=== PATIENT | female | born 1955 | race Two or more races ===

== ENCOUNTER 2017-09-03 06:05 | Day surgery (SDC) | payer OTHER ==
[2017-09-03] VITALS (8 sets, daily range): BP systolic 114–140; BP diastolic 79–96; PULSE 62–103; RESP 16–18; Ht 139.7 cm; Wt 43.7 kg
[~2017-09-03] VITALS: Ht 139.7 cm; Wt 43.7 kg
[~2017-09-03 06:05] MED LIST: ANTIBIOTIC; CALC-67 PO; IBUP-1542 PO; OMEP20CA16 PO
[2017-09-03] MEDS ORDERED: MIDAZOLAM 1 MG/ML 2 ML INJ ONE (07:11)
[2017-09-03] MEDS ORDERED: LIDOCAINE 2% (SDV) 5 ML INJ ONE (07:11)
[2017-09-03] MEDS ORDERED: PROPOFOL 20 ML ONE (07:11)
[2017-09-03] MEDS ORDERED: CEFAZOLIN 1 GM INJ ONE (07:12)
[2017-09-03] MEDS ORDERED: DEXAMETHASONE 4 MG/ML 1 ML INJ ONE ×2 (07:12→07:45)
[2017-09-03] MEDS ORDERED: FENTAnyl 50 MCG/ML VIAL ONE (07:12)
[2017-09-03] MEDS ORDERED: ONDANSETRON 4 MG INJ ONE (07:12)
[2017-09-03] MEDS ORDERED: FAMOTIDINE 20 MG INJ ONE (07:12)
[2017-09-03] MEDS ORDERED: ALEN40TA2 PO (07:18)
[2017-09-03] MEDS ORDERED: METOCLOPRAMIDE 10 MG INJ IV PRN (07:30)
[2017-09-03] MEDS ORDERED: MEPERIDINE 25 MG INJ IV PRN (07:30)
[2017-09-03] MEDS ORDERED: ONDANSETRON 4 MG INJ IV PRN (07:30)
[2017-09-03] MEDS ORDERED: OXYCODONE/ACETAMINOPHEN (5/325) TAB PO PRN ×2 (07:30)
[2017-09-03] MEDS ORDERED: DIPHENHYDRAMINE 50 MG INJ IV PRN (07:30)
[2017-09-03] MEDS ORDERED: FENTAnyl 50 MCG/ML VIAL IV PRN ×3 (07:30)
[2017-09-03] MEDS ORDERED: BUPIVACAINE 0.5% (SDV) 30 ML INJ ONE (07:44)
[2017-09-03] MEDS ORDERED: POLYMYXIN/BACITRACIN 1L IRRIG ONE (07:45)
--- NOTE | 2017-09-03 07:51 | HPN ---
Date/Time of Note Date/Time of Note DATE: 09/03/17 TIME: 07:51 Interval H&P Admission Note Pt. seen H&P reviewed: No system changes LILIANA RODRIGUEZ DPM Sep 03, 2017 07:51
[2017-09-03] MEDS ORDERED: POVIDONE IODINE 10% 28.4 GM OINT ONE (08:24)
--- NOTE | 2017-09-03 09:01 | SIPON ---
Date/Time of Note Date/Time of Note DATE: 09/03/17 TIME: 08:59 Operative Report Preoperative Diagnosis Deformed first metatarsal phalangeal joint right foot Postoperative Diagnosis Same Operation/Procedure Performed Pritesh bunionectomy Surgeon see signature line technical support assistant None Anesthesia: general Estimated blood loss: minimal Transfusion Required none Specimen Bone Grafts/Implants none Complications none LILIANA RODRIGUEZ DPM Sep 03, 2017 09:01
--- NOTE | 2017-09-03 10:39 | PREOPHP ---
DATE OF ADMISSION: 09/03/2017 BRIEF HISTORY: he patient is being admitted to the hospital for elective foot surgery. Palliative treatment unsuccessful. The patient has been explained surgery, complications and alternatives and elected to have elected foot surgery. The patient has pain in the first metatarsophalangeal joint on the right foot, which is totally deformed. Palliative treatment has been unsuccessful and the patient has been explained surgery, complications and alternative and elected to have elected foot surgery. She denies allergies to any medicines. She is taking medicine for cholesterol and asthma, as well as ibuprofen. The patient's review of systems is negative for the heart, liver, thyroid and kidneys, but is being treated for asthma for her lungs. Diabetes is negative, and negative smoking or alcohol. See any other pertinent history and upper extremity physical exam by Dr. Dean. Lower extremity physical exam shows a DP and PT equal and regular plus 3. Neurological negative for pathology. Dermatological negative for pathology. Musculoskeletal and x-ray findings show a deformed first metatarsophalangeal joint of the right foot. FINAL DIAGNOSIS: Deformed first metatarsophalangeal joint, right foot. Dictated By: Rene Fry DPM /[email or web address] /Document#: [id number]
--- NOTE | 2017-09-03 12:45 | OPR ---
DATE OF OPERATION: 09/03/2017 PREOPERATIVE DIAGNOSIS: Deformed 1st metatarsal phalangeal joint. POSTOPERATIVE DIAGNOSIS: Deformed 1st metatarsal phalangeal joint. PROCEDURE: Jonas bunionectomy, right foot. SURGEON: Rene Fry DPM OPERATIVE PROCEDURE: The patient was brought to the surgical suite, placed in the supine position. Patient was under general anesthesia. Had pneumatic cuff at mid thigh. Patient had sterile prep and drape, and findings consistent with the pre and postop diagnosis. The 1st incision was a dorsal medial longitudinal incision over the 1st metatarsophalangeal joint. The Bovie was used as necessary. A longitudinal capsulotomy with capsulotomy was made and the medial eminence on the 1st metatarsal freed of its attachment and resected and smooth. Next attention was turned to the base of the proximal phalanx where the base of the proximal phalanx and the lower 3rd of the proximal phalanx was freed of its attachment and the lower quarter was resected. The area was cleansed and the preoperative condition having been relieved. The area then had an EpiFix applied at the base of the proximal phalanx. The subcutaneous tissue was coapted using 3-0 Vicryl and the skin was coaptated using 5-0 nylon. The area was then injected with 0.5 percent Marcaine. The area was then dressed using half-inch Steri- Strips, Betadine ointment, 4x4s with Betadine solution and Adriel with an outer layer of Coban made into a semicompressive dressing. The patient tolerated the surgery well and was returned to recovery room in satisfactory condition. There was minimal blood loss. No complications. After the procedure, Epi- Fix application. Dictated By: Rene Fry DPM /[email or web address] /Document#: [id number]
== END 2017-09-03 10:30 | disposition home or self-care (01) ==
LOC: SDS 06:05
PROVIDERS: ATTEND Podiatrist
DX: M21.6X1 Other acquired deformities of right foot (principal); M21.611 Bunion of right foot; J45.909 Unspecified asthma, uncomplicated; K21.9 Gastro-esophageal reflux disease without esophagitis; E78.5 Hyperlipidemia, unspecified
CPT/HCPCS: 28292; 88304; 88311; J0690; J1100; J2405; J3010; L3260; L4386; Z7512; Z7610; J2250